=== PATIENT | female | born 1940 | race Caucasian/White ===

== ENCOUNTER 2017-08-03 12:52 | Inpatient (IN) ==
[2017-08-03] MEDS ORDERED: methylPREDNISolone SOD SUC 125 MG/2 ML VIAL IV STA (13:13)
[2017-08-03] MEDS ORDERED: ALBUTEROL NEB SOLN 5 MG/ML 20 ML/BOTTLE CONT NEB STA (13:13)
[2017-08-03] MEDS ORDERED: methylPREDNISolone SOD SUC 125 MG/2 ML VIAL ONE (14:14)
[2017-08-03 14:15] LABS: Basophils % 0.3 % (0.0-0.8); Eosinophils # 0.1 10*3/uL (0.0-0.87); Eosinophils % 0.9 % (0.00-10.9); Hematocrit 34.4 VOL% (35.7-47.0); Hemoglobin 10.4 GM/DL (12.0-16.0); Immature Granulocytes % 0.8 %; Immature Granulocytes Absolute 0.11 #; Lymphocytes # 2.3 10*3/uL (1.4-4.0); Lymphocytes % 17.1 % (21.3-54.2); Mean Corpuscular HGB Conc 30.2 GM/DL (32-36); Mean Corpuscular Hemoglobin 26 PG (27-34); Mean Corpuscular Volume 85.1 FL (87-102); Mean Platelet Volume 10.7 FL (9.6-12.0); Monocytes # 1.8 10*3/uL (0.11-0.8); Monocytes % 13.3 % (1.7-12.7); Neutrophils % 67.6 % (38.7-73.9); Platelet Count 224 T/CUMM (130-400); Red Blood Count 4.04 MC/CUMM (3.8-5.5); Red Cell Distribution Width 15.5 % (9.3-17.3); White Blood Count 13.3 T/CUMM (4-12)
[2017-08-03 14:37] LABS: Alanine Aminotransferase 21 U/L (13-56); Albumin 3.3 G/DL (3.4-5.0); Alkaline Phosphatase 55 U/L (45-117); Aspartate Amino Transferase 16 U/L (0-37); Bilirubin,Total < 0.39 MG/DL (0.2-1.0); Blood Urea Nitrogen 25 MG/DL (7-18); Calcium 8.6 MG/DL (8.5-10.1); Glucose 108 MG/DL (74-106); Osmolality,Calculated 285.3 MOS/KG (273-304); Potassium 3.4 MMOL/L (3.5-5.1); Sodium 141 MMOL/L (136-145); Total Protein 6.9 G/DL (6.4-8.3)
[2017-08-03] MEDS ORDERED: ALBUTEROL/IPRATROPIUM 3 ML NEB RESP TX PRN (17:10)
[2017-08-03] MEDS ORDERED: LEVOFLOXACIN INJ 500 MG in PREMIX 1 EACH IV STA (17:10)
[2017-08-03] MEDS: SODIUM CHLORIDE 0.9% 1,000 ML IV SCH (17:53)
[2017-08-03] MEDS ORDERED: ALBUTEROL 2.5 MG/3 ML NEB RESP TX SCH (18:00)
[2017-08-03] MEDS ORDERED: methylPREDNISolone SOD SUC 125 MG/2 ML VIAL IV SCH (18:00)
[2017-08-03] MEDS: DOCUSATE SODIUM 100 MG CAPSULE PO SCH (20:53)
[2017-08-03] MEDS: methylPREDNISolone SOD SUC 40 MG/1 ML VIAL IV SCH (20:54)
[2017-08-03] MEDS: METOPROLOL TARTRATE 50 MG TABLET PO SCH (20:54)
[2017-08-03] MEDS: ALBUTEROL/IPRATROPIUM 3 ML NEB RESP TX SCH (21:05)
[2017-08-04] MEDS: ALBUTEROL/IPRATROPIUM 3 ML NEB RESP TX SCH ×4 (00:16→20:02)
[2017-08-04] MEDS: methylPREDNISolone SOD SUC 40 MG/1 ML VIAL IV SCH ×3 (02:29→16:52)
[2017-08-04] MEDS: SODIUM CHLORIDE 0.9% 1,000 ML IV SCH ×3 (02:34→18:35)
[2017-08-04] MEDS: LEVOTHYROXINE 50 MCG TABLET PO SCH (07:24)
[2017-08-04] MEDS ORDERED: PANTOPRAZOLE 40 MG TABLET PO SCH (09:00)
[2017-08-04] MEDS: ZINC GLUCONATE 50 MG TABLET PO SCH (09:50)
[2017-08-04] MEDS: ACETAMINOPHEN 325 MG TABLET PO PRN ×2 (09:50→16:02)
[2017-08-04] MEDS: METOPROLOL TARTRATE 50 MG TABLET PO SCH ×2 (09:50→20:38)
[2017-08-04] MEDS: MAGNESIUM OXIDE 400 MG TABLET PO SCH (09:50)
[2017-08-04] MEDS: rOPINIRole 0.25 MG TABLET PO SCH (09:50)
[2017-08-04] MEDS: ASPIRIN EC 81 MG TABLET PO SCH (09:51)
[2017-08-04] MEDS: FUROSEMIDE 40 MG TABLET PO SCH (09:51)
[2017-08-04] MEDS: PANTOPRAZOLE 40 MG TABLET PO SCH (09:51)
[2017-08-04] MEDS: CLOPIDOGREL 75 MG TABLET PO SCH (09:51)
[2017-08-04] MEDS: MONTELUKAST 10 MG TABLET PO SCH (09:51)
[2017-08-04] MEDS: predniSONE 10 MG TABLET PO SCH (09:51)
[2017-08-04] MEDS: hydroCHLOROthiazide 25 MG TABLET PO SCH (09:51)
[2017-08-04] MEDS: RALOXIFENE 60 MG TABLET PO SCH (09:51)
[2017-08-04] MEDS: PRAVASTATIN 20 MG TABLET PO SCH (09:51)
[2017-08-04] MEDS: FOLIC ACID 1 MG TABLET PO SCH (09:52)
[2017-08-04] MEDS: CALCIUM (CARBONATE) 500 MG TABLET PO SCH (09:52)
[2017-08-04] MEDS: DOCUSATE SODIUM 100 MG CAPSULE PO SCH ×2 (09:52→20:38)
[2017-08-04] MEDS: ENOXAPARIN 40 MG/0.4 ML SYRINGE SUBCUT SCH (10:04)
[2017-08-04] MEDS: ONDANSETRON 4 MG/2 ML VIAL IV PRN (19:05)
[2017-08-04] MEDS: LEVOFLOXACIN INJ 500 MG in PREMIX 1 EACH IV SCH (20:41)
[2017-08-05] MEDS: ALBUTEROL/IPRATROPIUM 3 ML NEB RESP TX SCH ×4 (00:45→20:10)
[2017-08-05] MEDS: ACETAMINOPHEN 325 MG TABLET PO PRN (01:12)
[2017-08-05] MEDS: methylPREDNISolone SOD SUC 40 MG/1 ML VIAL IV SCH ×3 (01:13→17:08)
[2017-08-05] MEDS: ONDANSETRON 4 MG/2 ML VIAL IV PRN (01:14)
[2017-08-05] MEDS: SODIUM CHLORIDE 0.9% 1,000 ML IV SCH ×2 (03:20→17:12)
[2017-08-05] MEDS: LEVOTHYROXINE 50 MCG TABLET PO SCH (05:38)
[2017-08-05 06:26] LABS: Basophils % 0.1 % (0.0-0.8); Hematocrit 33.5 VOL% (35.7-47.0); Hemoglobin 9.9 GM/DL (12.0-16.0); Immature Granulocytes % 1.2 %; Immature Granulocytes Absolute 0.27 #; Lymphocytes # 1.4 10*3/uL (1.4-4.0); Lymphocytes % 5.9 % (21.3-54.2); Mean Corpuscular HGB Conc 29.6 GM/DL (32-36); Mean Corpuscular Hemoglobin 26 PG (27-34); Mean Corpuscular Volume 86.6 FL (87-102); Mean Platelet Volume 11.3 FL (9.6-12.0); Monocytes # 1.3 10*3/uL (0.11-0.8); Monocytes % 5.7 % (1.7-12.7); Neutrophils # 20.4 10*3/uL (1.4-7.4); Neutrophils % 87.1 % (38.7-73.9); Platelet Count 228 T/CUMM (130-400); Red Blood Count 3.87 MC/CUMM (3.8-5.5); Red Cell Distribution Width 15.8 % (9.3-17.3); White Blood Count 23.4 T/CUMM (4-12)
[2017-08-05 06:44] LABS: Calcium 8.4 MG/DL (8.5-10.1); Osmolality,Calculated 294.7 MOS/KG (273-304); Potassium 3.8 MMOL/L (3.5-5.1)
[2017-08-05 07:06] LABS: Lymphocytes 5 % (20-55); Platelet Estimate Normal; Segmented Neutrophils 91 % (50-85); Total Cells Counted 100
[2017-08-05] MEDS: ENOXAPARIN 40 MG/0.4 ML SYRINGE SUBCUT SCH (09:51)
[2017-08-05] MEDS: RALOXIFENE 60 MG TABLET PO SCH (09:52)
[2017-08-05] MEDS: MAGNESIUM OXIDE 400 MG TABLET PO SCH (09:53)
[2017-08-05] MEDS: rOPINIRole 0.25 MG TABLET PO SCH ×2 (09:53→21:00)
[2017-08-05] MEDS: ZINC GLUCONATE 50 MG TABLET PO SCH (09:53)
[2017-08-05] MEDS: OSELTAMIVIR 75 MG CAPSULE PO SCH ×2 (09:53→21:00)
[2017-08-05] MEDS: CALCIUM (CARBONATE) 500 MG TABLET PO SCH (09:53)
[2017-08-05] MEDS: CLOPIDOGREL 75 MG TABLET PO SCH (09:53)
[2017-08-05] MEDS: GABAPENTIN 300 MG CAPSULE PO SCH ×3 (09:53→21:00)
[2017-08-05] MEDS: hydroCHLOROthiazide 25 MG TABLET PO SCH (09:53)
[2017-08-05] MEDS: DOCUSATE SODIUM 100 MG CAPSULE PO SCH ×2 (09:54→21:01)
[2017-08-05] MEDS: FUROSEMIDE 40 MG TABLET PO SCH (09:54)
[2017-08-05] MEDS: ASPIRIN EC 81 MG TABLET PO SCH (09:54)
[2017-08-05] MEDS: METOPROLOL TARTRATE 50 MG TABLET PO SCH ×2 (09:54→21:01)
[2017-08-05] MEDS: PANTOPRAZOLE 40 MG TABLET PO SCH (09:54)
[2017-08-05] MEDS: predniSONE 10 MG TABLET PO SCH (09:54)
[2017-08-05] MEDS: PRAVASTATIN 20 MG TABLET PO SCH (09:54)
[2017-08-05] MEDS: FOLIC ACID 1 MG TABLET PO SCH (09:55)
[2017-08-05] MEDS: MONTELUKAST 10 MG TABLET PO SCH (09:55)
[2017-08-05] MEDS: LEVOFLOXACIN INJ 500 MG in PREMIX 1 EACH IV SCH (21:01)
[2017-08-06] MEDS: methylPREDNISolone SOD SUC 40 MG/1 ML VIAL IV SCH ×3 (01:16→22:10)
[2017-08-06] MEDS: ALBUTEROL/IPRATROPIUM 3 ML NEB RESP TX SCH ×4 (01:17→20:51)
[2017-08-06] MEDS: SODIUM CHLORIDE 0.9% 1,000 ML IV SCH ×3 (04:06→20:10)
[2017-08-06] MEDS: LEVOTHYROXINE 50 MCG TABLET PO SCH (05:36)
[2017-08-06] MEDS ORDERED: BENZONATATE 100 MG CAPSULE PO PRN (08:11)
[2017-08-06] MEDS: ASPIRIN EC 81 MG TABLET PO SCH (08:48)
[2017-08-06] MEDS: RALOXIFENE 60 MG TABLET PO SCH (08:49)
[2017-08-06] MEDS: hydroCHLOROthiazide 25 MG TABLET PO SCH (08:49)
[2017-08-06] MEDS: DOCUSATE SODIUM 100 MG CAPSULE PO SCH ×2 (08:49→21:57)
[2017-08-06] MEDS: FOLIC ACID 1 MG TABLET PO SCH (08:49)
[2017-08-06] MEDS: FUROSEMIDE 40 MG TABLET PO SCH (08:50)
[2017-08-06] MEDS: ENOXAPARIN 40 MG/0.4 ML SYRINGE SUBCUT SCH (08:50)
[2017-08-06] MEDS: METOPROLOL TARTRATE 50 MG TABLET PO SCH ×2 (08:50→21:57)
[2017-08-06] MEDS: OSELTAMIVIR 75 MG CAPSULE PO SCH ×2 (08:51→21:57)
[2017-08-06] MEDS: PRAVASTATIN 20 MG TABLET PO SCH (08:52)
[2017-08-06] MEDS: MAGNESIUM OXIDE 400 MG TABLET PO SCH (08:52)
[2017-08-06] MEDS: PANTOPRAZOLE 40 MG TABLET PO SCH (08:52)
[2017-08-06] MEDS: GABAPENTIN 300 MG CAPSULE PO SCH ×3 (08:53→21:56)
[2017-08-06] MEDS: CLOPIDOGREL 75 MG TABLET PO SCH (08:53)
[2017-08-06] MEDS: rOPINIRole 0.25 MG TABLET PO SCH ×2 (08:53→21:57)
[2017-08-06] MEDS: CALCIUM (CARBONATE) 500 MG TABLET PO SCH (08:53)
[2017-08-06] MEDS: MONTELUKAST 10 MG TABLET PO SCH (08:54)
[2017-08-06] MEDS: ZINC GLUCONATE 50 MG TABLET PO SCH (08:55)
[2017-08-06] MEDS: predniSONE 10 MG TABLET PO SCH (08:55)
[2017-08-06] MEDS: LEVOFLOXACIN INJ 500 MG in PREMIX 1 EACH IV SCH (22:11)
[2017-08-07] MEDS: ALBUTEROL/IPRATROPIUM 3 ML NEB RESP TX SCH ×3 (00:23→13:11)
[2017-08-07] MEDS ORDERED: guaiFENesin 200 MG/10 ML UDCUP PO PRN (02:17)
[2017-08-07] MEDS: SODIUM CHLORIDE 0.9% 1,000 ML IV SCH ×2 (06:20→15:40)
[2017-08-07] MEDS: DOCUSATE SODIUM 100 MG CAPSULE PO SCH (09:19)
[2017-08-07] MEDS: hydroCHLOROthiazide 25 MG TABLET PO SCH (09:19)
[2017-08-07] MEDS: OSELTAMIVIR 75 MG CAPSULE PO SCH (09:19)
[2017-08-07] MEDS: FUROSEMIDE 40 MG TABLET PO SCH (09:19)
[2017-08-07] MEDS: ENOXAPARIN 40 MG/0.4 ML SYRINGE SUBCUT SCH (09:19)
[2017-08-07] MEDS: PRAVASTATIN 20 MG TABLET PO SCH (09:20)
[2017-08-07] MEDS: MAGNESIUM OXIDE 400 MG TABLET PO SCH (09:20)
[2017-08-07] MEDS: RALOXIFENE 60 MG TABLET PO SCH (09:20)
[2017-08-07] MEDS: rOPINIRole 0.25 MG TABLET PO SCH (09:20)
[2017-08-07] MEDS: PANTOPRAZOLE 40 MG TABLET PO SCH (09:20)
[2017-08-07] MEDS: ZINC GLUCONATE 50 MG TABLET PO SCH (09:20)
[2017-08-07] MEDS: LEVOTHYROXINE 50 MCG TABLET PO SCH (09:21)
[2017-08-07] MEDS: CLOPIDOGREL 75 MG TABLET PO SCH (09:21)
[2017-08-07] MEDS: GABAPENTIN 300 MG CAPSULE PO SCH (09:21)
[2017-08-07] MEDS: ASPIRIN EC 81 MG TABLET PO SCH (09:21)
[2017-08-07] MEDS: FOLIC ACID 1 MG TABLET PO SCH (09:22)
[2017-08-07] MEDS: MONTELUKAST 10 MG TABLET PO SCH (09:23)
[2017-08-07] MEDS: predniSONE 10 MG TABLET PO SCH (09:24)
[2017-08-07] MEDS: CALCIUM (CARBONATE) 500 MG TABLET PO SCH (09:24)
[2017-08-07] MEDS: METOPROLOL TARTRATE 50 MG TABLET PO SCH (09:25)
[2017-08-07] MEDS: methylPREDNISolone SOD SUC 40 MG/1 ML VIAL IV SCH (09:25)
[2017-08-07 12:03] VITALS: BP 134/61
== END 2017-08-07 14:30 | disposition home or self-care (01) | DRG 194 ==
LOC: EDBD → EDUNIT# → N.ED 12:52 → N.EDINP 15:54 → N.2E 17:00
PROVIDERS: ADMIT Internal Medicine; ATTEND Internal Medicine

== ENCOUNTER 2018-01-26 04:35 | Inpatient (IN) ==
[2018-01-26 06:19] LABS: Basophils % 0.2 % (0.0-0.8); Eosinophils % 0.2 % (0.00-10.9); Hematocrit 34.3 VOL% (35.7-47.0); Hemoglobin 10.3 GM/DL (12.0-16.0); Immature Granulocytes % 0.5 %; Immature Granulocytes Absolute 0.11 #; Lymphocytes # 2.2 10*3/uL (1.4-4.0); Lymphocytes % 10.9 % (21.3-54.2); Mean Corpuscular Hemoglobin 24 PG (27-34); Mean Corpuscular Volume 80.5 FL (87-102); Mean Platelet Volume 10.3 FL (9.6-12.0); Monocytes # 2.2 10*3/uL (0.11-0.8); Monocytes % 11.1 % (1.7-12.7); Neutrophils # 15.6 10*3/uL (1.4-7.4); Neutrophils % 77.1 % (38.7-73.9); Platelet Count 244 T/CUMM (130-400); Red Blood Count 4.26 MC/CUMM (3.8-5.5); Red Cell Distribution Width 16.2 % (9.3-17.3); White Blood Count 20.2 T/CUMM (4-12)
[2018-01-26 06:32] LABS: Calcium 8.6 MG/DL (8.5-10.1); Osmolality,Calculated 276.8 MOS/KG (273-304); Potassium 3.6 MMOL/L (3.5-5.1)
[2018-01-26 07:01] LABS: Apearance,Urine CLEAR (Clear); Bilirubin,Urine Negative (Negative); Blood, Urine Small mg/dL (Negative); Glucose,Urine (UA) Negative (Negative); Ketones,Urine 5 mg/dL (Negative); Nitrite,Urine Negative (Negative); Protein,Urine Negative; RBC,Urine 3 /HPF (0-4); Squamous Epithelial Cell,Urine Occasional /HPF (0-10); Urine Color Yellow (Yellow); Urine Specific Gravity 1.014 (1.001-1.035); Urine Urobilinogen < 2.0 EU/DL (0.2-1.0); WBC,Urine 1 /HPF (0-6)
[2018-01-26] MEDS ORDERED: ONDANSETRON 4 MG/2 ML VIAL IV STA (07:18)
[2018-01-26] MEDS ORDERED: SODIUM CHLORIDE 0.9% 1,000 ML IV STA (07:18)
[2018-01-26] MEDS ORDERED: fentaNYL 100 MCG/2 ML VIAL IV STA (07:18)
[2018-01-26 08:02] LABS: Hypochromasia 2+; Macrocytosis 1+
[2018-01-26] MEDS ORDERED: AMPICILLIN/SULBACTAM 3,000 MG in SODIUM CHLORIDE 0.9% 100 ML IV STA (08:04)
[2018-01-26] MEDS ORDERED: fentaNYL 100 MCG/2 ML VIAL IV PRN (10:58)
[2018-01-26] MEDS ORDERED: ACETAMINOPHEN 325 MG TABLET PO PRN (10:58)
[2018-01-26] MEDS: PANTOPRAZOLE 40 MG TABLET PO SCH (12:32)
[2018-01-26] MEDS: DOCUSATE SODIUM 100 MG CAPSULE PO SCH ×2 (12:32→22:09)
[2018-01-26] MEDS: SODIUM CHLORIDE 0.9% 1,000 ML IV SCH (12:32)
[2018-01-26] MEDS: metroNIDAZOLE INJ 500 MG in PREMIX 1 EACH IV SCH ×2 (12:32→19:07)
[2018-01-26] MEDS: AMPICILLIN/SULBACTAM 3,000 MG in SODIUM CHLORIDE 0.9% 100 ML IV SCH ×2 (14:25→22:08)
[2018-01-26] MEDS: ONDANSETRON 4 MG/2 ML VIAL IV PRN (19:07)
[2018-01-26] MEDS: MORPHINE 4 MG/1 ML VIAL IV PRN (22:09)
[2018-01-27] MEDS: SODIUM CHLORIDE 0.9% 1,000 ML IV SCH ×4 (01:09→22:36)
[2018-01-27] MEDS: metroNIDAZOLE INJ 500 MG in PREMIX 1 EACH IV SCH ×3 (02:52→18:47)
[2018-01-27] MEDS: MORPHINE 4 MG/1 ML VIAL IV PRN (04:24)
[2018-01-27] MEDS: AMPICILLIN/SULBACTAM 3,000 MG in SODIUM CHLORIDE 0.9% 100 ML IV SCH ×3 (05:58→22:10)
[2018-01-27 06:41] LABS: Basophils % 0.2 % (0.0-0.8); Eosinophils # 0.1 10*3/uL (0.0-0.87); Eosinophils % 0.9 % (0.00-10.9); Hematocrit 29.9 VOL% (35.7-47.0); Immature Granulocytes % 0.9 %; Immature Granulocytes Absolute 0.14 #; Lymphocytes # 1.5 10*3/uL (1.4-4.0); Lymphocytes % 9.1 % (21.3-54.2); Mean Corpuscular HGB Conc 30.1 GM/DL (32-36); Mean Corpuscular Hemoglobin 24 PG (27-34); Mean Corpuscular Volume 80.2 FL (87-102); Monocytes # 1.7 10*3/uL (0.11-0.8); Monocytes % 10.6 % (1.7-12.7); Neutrophils # 12.8 10*3/uL (1.4-7.4); Neutrophils % 78.3 % (38.7-73.9); Platelet Count 215 T/CUMM (130-400); Red Blood Count 3.73 MC/CUMM (3.8-5.5); Red Cell Distribution Width 16.4 % (9.3-17.3); White Blood Count 16.3 T/CUMM (4-12)
[2018-01-27 07:21] LABS: Albumin 2.3 G/DL (3.4-5.0); Bilirubin,Total 0.6 MG/DL (0.2-1.0); Calcium 7.7 MG/DL (8.5-10.1); Osmolality,Calculated 280.3 MOS/KG (273-304); Potassium 3.5 MMOL/L (3.5-5.1); Total Protein 5.3 G/DL (6.4-8.3)
[2018-01-27] MEDS: PANTOPRAZOLE 40 MG TABLET PO SCH (09:30)
[2018-01-27] MEDS: DOCUSATE SODIUM 100 MG CAPSULE PO SCH ×2 (09:30→20:59)
[2018-01-27] MEDS: ONDANSETRON 4 MG/2 ML VIAL IV PRN (17:18)
[2018-01-27] MEDS: rOPINIRole 0.25 MG TABLET PO SCH (19:44)
[2018-01-27] MEDS ORDERED: PROMETHAZINE 25 MG/1 ML VIAL IM PRN (22:08)
[2018-01-28] MEDS: metroNIDAZOLE INJ 500 MG in PREMIX 1 EACH IV SCH ×3 (02:40→18:28)
[2018-01-28] MEDS: MORPHINE 4 MG/1 ML VIAL IV PRN (03:43)
[2018-01-28] MEDS: AMPICILLIN/SULBACTAM 3,000 MG in SODIUM CHLORIDE 0.9% 100 ML IV SCH ×3 (05:40→21:43)
[2018-01-28 06:18] LABS: Basophils % 0.1 % (0.0-0.8); Eosinophils # 0.2 10*3/uL (0.0-0.87); Eosinophils % 1.7 % (0.00-10.9); Hemoglobin 8.3 GM/DL (12.0-16.0); Immature Granulocytes % 0.5 %; Immature Granulocytes Absolute 0.06 #; Lymphocytes # 1.2 10*3/uL (1.4-4.0); Lymphocytes % 9.7 % (21.3-54.2); Mean Corpuscular HGB Conc 29.6 GM/DL (32-36); Mean Corpuscular Hemoglobin 24 PG (27-34); Mean Corpuscular Volume 80.9 FL (87-102); Mean Platelet Volume 10.6 FL (9.6-12.0); Monocytes # 1.3 10*3/uL (0.11-0.8); Monocytes % 10.9 % (1.7-12.7); Neutrophils # 9.5 10*3/uL (1.4-7.4); Neutrophils % 77.1 % (38.7-73.9); Platelet Count 233 T/CUMM (130-400); Red Blood Count 3.46 MC/CUMM (3.8-5.5); Red Cell Distribution Width 16.4 % (9.3-17.3); White Blood Count 12.3 T/CUMM (4-12)
[2018-01-28] MEDS: SODIUM CHLORIDE 0.9% 1,000 ML IV SCH ×2 (08:53→08:56)
[2018-01-28] MEDS: ENOXAPARIN 40 MG/0.4 ML SYRINGE SUBCUT SCH (09:17)
[2018-01-28] MEDS: metOLazone 2.5 MG TABLET PO SCH (09:18)
[2018-01-28] MEDS: METOPROLOL TARTRATE 50 MG TABLET PO SCH ×2 (09:20→21:29)
[2018-01-28] MEDS: FOLIC ACID 1 MG TABLET PO SCH (09:21)
[2018-01-28] MEDS: DOCUSATE SODIUM 100 MG CAPSULE PO SCH ×2 (09:21→21:29)
[2018-01-28] MEDS: FUROSEMIDE 40 MG TABLET PO SCH (09:22)
[2018-01-28] MEDS: PANTOPRAZOLE 40 MG TABLET PO SCH (09:22)
[2018-01-28] MEDS: predniSONE 5 MG TABLET PO SCH (09:23)
[2018-01-28] MEDS: rOPINIRole 0.25 MG TABLET PO SCH (18:27)
[2018-01-29] MEDS: SODIUM CHLORIDE 0.9% 1,000 ML IV SCH ×2 (01:11→18:55)
[2018-01-29] MEDS: metroNIDAZOLE INJ 500 MG in PREMIX 1 EACH IV SCH ×3 (02:30→18:55)
[2018-01-29 03:38] LABS: Basophils % 0.1 % (0.0-0.8); Eosinophils # 0.1 10*3/uL (0.0-0.87); Eosinophils % 1.1 % (0.00-10.9); Hematocrit 27.4 VOL% (35.7-47.0); Hemoglobin 8.2 GM/DL (12.0-16.0); Immature Granulocytes % 0.5 %; Immature Granulocytes Absolute 0.05 #; Lymphocytes # 1.5 10*3/uL (1.4-4.0); Lymphocytes % 14.9 % (21.3-54.2); Mean Corpuscular HGB Conc 29.9 GM/DL (32-36); Mean Corpuscular Hemoglobin 25 PG (27-34); Mean Corpuscular Volume 82.3 FL (87-102); Mean Platelet Volume 10.8 FL (9.6-12.0); Monocytes # 1.2 10*3/uL (0.11-0.8); Monocytes % 11.9 % (1.7-12.7); Neutrophils # 7.2 10*3/uL (1.4-7.4); Neutrophils % 71.5 % (38.7-73.9); Platelet Count 240 T/CUMM (130-400); Red Blood Count 3.33 MC/CUMM (3.8-5.5); Red Cell Distribution Width 16.2 % (9.3-17.3)
[2018-01-29 03:54] LABS: Calcium 7.9 MG/DL (8.5-10.1); Potassium 3.2 MMOL/L (3.5-5.1)
[2018-01-29] MEDS: AMPICILLIN/SULBACTAM 3,000 MG in SODIUM CHLORIDE 0.9% 100 ML IV SCH ×3 (05:18→21:11)
[2018-01-29] MEDS: LEVOTHYROXINE 50 MCG TABLET PO SCH (06:10)
[2018-01-29] MEDS: DOCUSATE SODIUM 100 MG CAPSULE PO SCH ×2 (09:19→21:11)
[2018-01-29] MEDS: METOPROLOL TARTRATE 50 MG TABLET PO SCH ×2 (09:19→21:11)
[2018-01-29] MEDS: FUROSEMIDE 40 MG TABLET PO SCH (09:19)
[2018-01-29] MEDS: metOLazone 2.5 MG TABLET PO SCH (09:19)
[2018-01-29] MEDS: predniSONE 5 MG TABLET PO SCH (09:20)
[2018-01-29] MEDS: FOLIC ACID 1 MG TABLET PO SCH (09:20)
[2018-01-29] MEDS: ENOXAPARIN 40 MG/0.4 ML SYRINGE SUBCUT SCH (09:20)
[2018-01-29] MEDS: PANTOPRAZOLE 40 MG TABLET PO SCH (09:20)
[2018-01-29] MEDS: rOPINIRole 0.25 MG TABLET PO SCH (18:55)
[2018-01-30] MEDS: metroNIDAZOLE INJ 500 MG in PREMIX 1 EACH IV SCH ×3 (02:39→18:52)
[2018-01-30] MEDS: AMPICILLIN/SULBACTAM 3,000 MG in SODIUM CHLORIDE 0.9% 100 ML IV SCH ×3 (06:19→21:08)
[2018-01-30] MEDS: LEVOTHYROXINE 50 MCG TABLET PO SCH (06:20)
[2018-01-30] MEDS: DOCUSATE SODIUM 100 MG CAPSULE PO SCH (08:42)
[2018-01-30] MEDS: PANTOPRAZOLE 40 MG TABLET PO SCH (08:42)
[2018-01-30] MEDS: predniSONE 5 MG TABLET PO SCH (08:42)
[2018-01-30] MEDS: METOPROLOL TARTRATE 50 MG TABLET PO SCH ×2 (08:42→21:08)
[2018-01-30] MEDS: FUROSEMIDE 40 MG TABLET PO SCH (08:42)
[2018-01-30] MEDS: ENOXAPARIN 40 MG/0.4 ML SYRINGE SUBCUT SCH (08:42)
[2018-01-30] MEDS: FOLIC ACID 1 MG TABLET PO SCH (08:42)
[2018-01-30] MEDS: metOLazone 2.5 MG TABLET PO SCH (08:42)
[2018-01-30] MEDS: SODIUM CHLORIDE 0.9% 1,000 ML IV SCH (12:57)
[2018-01-30 13:01] LABS: Basophils % 0.2 % (0.0-0.8); Eosinophils # 0.2 10*3/uL (0.0-0.87); Eosinophils % 1.6 % (0.00-10.9); Hematocrit 29.9 VOL% (35.7-47.0); Hemoglobin 8.9 GM/DL (12.0-16.0); Immature Granulocytes % 0.7 %; Immature Granulocytes Absolute 0.07 #; Lymphocytes # 0.9 10*3/uL (1.4-4.0); Mean Corpuscular HGB Conc 29.8 GM/DL (32-36); Mean Corpuscular Hemoglobin 24 PG (27-34); Mean Corpuscular Volume 81.7 FL (87-102); Mean Platelet Volume 10.1 FL (9.6-12.0); Monocytes # 0.5 10*3/uL (0.11-0.8); Monocytes % 5.2 % (1.7-12.7); Neutrophils # 8.6 10*3/uL (1.4-7.4); Neutrophils % 83.3 % (38.7-73.9); Platelet Count 276 T/CUMM (130-400); Red Blood Count 3.66 MC/CUMM (3.8-5.5); Red Cell Distribution Width 15.8 % (9.3-17.3); White Blood Count 10.3 T/CUMM (4-12)
[2018-01-30 13:28] LABS: Calcium 8.2 MG/DL (8.5-10.1); Osmolality,Calculated 283.1 MOS/KG (273-304); Potassium 3.1 MMOL/L (3.5-5.1)
[2018-01-30] MEDS: rOPINIRole 0.25 MG TABLET PO SCH (18:52)
[2018-01-31] MEDS: metroNIDAZOLE INJ 500 MG in PREMIX 1 EACH IV SCH ×3 (03:18→18:52)
[2018-01-31] MEDS: SODIUM CHLORIDE 0.9% 1,000 ML IV SCH ×2 (05:29→19:16)
[2018-01-31] MEDS: AMPICILLIN/SULBACTAM 3,000 MG in SODIUM CHLORIDE 0.9% 100 ML IV SCH ×3 (05:57→22:21)
[2018-01-31 05:59] LABS: Basophils % 0.3 % (0.0-0.8); Eosinophils # 0.2 10*3/uL (0.0-0.87); Hematocrit 28.8 VOL% (35.7-47.0); Hemoglobin 8.8 GM/DL (12.0-16.0); Immature Granulocytes % 0.4 %; Immature Granulocytes Absolute 0.03 #; Lymphocytes # 2.3 10*3/uL (1.4-4.0); Lymphocytes % 30.6 % (21.3-54.2); Mean Corpuscular HGB Conc 30.6 GM/DL (32-36); Mean Corpuscular Hemoglobin 24 PG (27-34); Mean Corpuscular Volume 79.8 FL (87-102); Mean Platelet Volume 10.8 FL (9.6-12.0); Monocytes # 0.9 10*3/uL (0.11-0.8); Monocytes % 12.2 % (1.7-12.7); Neutrophils # 4.2 10*3/uL (1.4-7.4); Neutrophils % 54.5 % (38.7-73.9); Platelet Count 281 T/CUMM (130-400); Red Blood Count 3.61 MC/CUMM (3.8-5.5); Red Cell Distribution Width 15.8 % (9.3-17.3); White Blood Count 7.6 T/CUMM (4-12)
[2018-01-31] MEDS: LEVOTHYROXINE 50 MCG TABLET PO SCH (06:00)
[2018-01-31 06:18] LABS: Osmolality,Calculated 283.8 MOS/KG (273-304); Potassium 3.4 MMOL/L (3.5-5.1)
[2018-01-31 06:22] LABS: Eosinophils 1 % (0-10); Hypochromasia 1+; Lymphocytes 34 % (20-55); Platelet Estimate Adequate; Segmented Neutrophils 56 % (50-85); Total Cells Counted 100
[2018-01-31] MEDS: ENOXAPARIN 40 MG/0.4 ML SYRINGE SUBCUT SCH (08:35)
[2018-01-31] MEDS: METOPROLOL TARTRATE 50 MG TABLET PO SCH ×2 (08:35→20:41)
[2018-01-31] MEDS: metOLazone 2.5 MG TABLET PO SCH (08:35)
[2018-01-31] MEDS: PANTOPRAZOLE 40 MG TABLET PO SCH (08:35)
[2018-01-31] MEDS: POTASSIUM CHLORIDE 8 MEQ CAPSULE PO SCH (08:35)
[2018-01-31] MEDS: predniSONE 5 MG TABLET PO SCH (08:35)
[2018-01-31] MEDS: FOLIC ACID 1 MG TABLET PO SCH (08:35)
[2018-01-31] MEDS: FUROSEMIDE 40 MG TABLET PO SCH (08:35)
[2018-01-31] MEDS: rOPINIRole 0.25 MG TABLET PO SCH (18:52)
[2018-02-01] MEDS: metroNIDAZOLE INJ 500 MG in PREMIX 1 EACH IV SCH ×2 (03:40→10:33)
[2018-02-01 05:30] LABS: Basophils % 0.3 % (0.0-0.8); Eosinophils # 0.1 10*3/uL (0.0-0.87); Eosinophils % 0.8 % (0.00-10.9); Hematocrit 28.9 VOL% (35.7-47.0); Hemoglobin 8.6 GM/DL (12.0-16.0); Lymphocytes % 28.8 % (21.3-54.2); Mean Corpuscular HGB Conc 29.8 GM/DL (32-36); Mean Corpuscular Hemoglobin 24 PG (27-34); Mean Corpuscular Volume 80.7 FL (87-102); Mean Platelet Volume 10.8 FL (9.6-12.0); Monocytes # 1.2 10*3/uL (0.11-0.8); Monocytes % 11.2 % (1.7-12.7); Neutrophils # 5.9 10*3/uL (1.4-7.4); Neutrophils % 57.9 % (38.7-73.9); Platelet Count 312 T/CUMM (130-400); Red Blood Count 3.58 MC/CUMM (3.8-5.5); Red Cell Distribution Width 15.7 % (9.3-17.3); White Blood Count 10.3 T/CUMM (4-12)
[2018-02-01] MEDS: AMPICILLIN/SULBACTAM 3,000 MG in SODIUM CHLORIDE 0.9% 100 ML IV SCH (05:46)
[2018-02-01 05:57] LABS: Osmolality,Calculated 283.1 MOS/KG (273-304); Potassium 3.2 MMOL/L (3.5-5.1)
[2018-02-01 05:58] LABS: Hypochromasia 1+; Ovalocytes Slight; Platelet Estimate Adequate
[2018-02-01] MEDS: LEVOTHYROXINE 50 MCG TABLET PO SCH (07:20)
[2018-02-01 07:44] VITALS: BP 150/67
[2018-02-01] MEDS: FOLIC ACID 1 MG TABLET PO SCH (09:51)
[2018-02-01] MEDS: PANTOPRAZOLE 40 MG TABLET PO SCH (09:51)
[2018-02-01] MEDS: metOLazone 2.5 MG TABLET PO SCH (09:51)
[2018-02-01] MEDS: predniSONE 5 MG TABLET PO SCH (09:51)
[2018-02-01] MEDS: METOPROLOL TARTRATE 50 MG TABLET PO SCH (09:51)
[2018-02-01] MEDS: FUROSEMIDE 40 MG TABLET PO SCH (09:51)
[2018-02-01] MEDS: POTASSIUM CHLORIDE 8 MEQ CAPSULE PO SCH (09:51)
[2018-02-01] MEDS: ENOXAPARIN 40 MG/0.4 ML SYRINGE SUBCUT SCH (09:52)
== END 2018-02-01 10:53 | disposition home health service (06) | DRG 392 ==
LOC: EDUNIT# → EDBD → N.ED 04:35 → N.EDINP 08:07 → N.3E 08:42
PROVIDERS: ADMIT Internal Medicine; ATTEND Internal Medicine

== ENCOUNTER 2019-06-15 12:42 | Inpatient (IN) ==
[2019-06-15] MEDS ORDERED: SODIUM CHLORIDE 0.9% 500 ML IV STA (14:09)
[2019-06-15] MEDS ORDERED: AMPICILLIN/SULBACTAM 3,000 MG in SODIUM CHLORIDE 0.9% 100 ML IV STA (14:09)
[2019-06-15] MEDS ORDERED: metroNIDAZOLE INJ 500 MG in PREMIX 1 EACH IV STA (14:09)
[2019-06-15] MEDS ORDERED: ACETAMINOPHEN 325 MG TABLET PO PRN (14:19)
[2019-06-15] MEDS ORDERED: ONDANSETRON 4 MG/2 ML VIAL IV PRN (14:19)
[2019-06-15 14:31] LABS: Basophils % 0.1 % (0.0-0.8); Eosinophils % 0.1 % (0.00-10.9); Hematocrit 37.6 VOL% (35.7-47.0); Hemoglobin 11.6 GM/DL (12.0-16.0); Immature Granulocytes % 0.8 %; Immature Granulocytes Absolute 0.16 #; Lymphocytes # 1.2 10*3/uL (1.4-4.0); Lymphocytes % 6.1 % (21.3-54.2); Mean Corpuscular HGB Conc 30.9 GM/DL (32-36); Mean Corpuscular Volume 87.2 FL (87-102); Monocytes % 7.9 % (1.7-12.7); Platelet Count 214 T/CUMM (130-400); Red Blood Count 4.31 MC/CUMM (3.8-5.5); Red Cell Distribution Width 14.8 % (9.3-17.3)
[2019-06-15 14:59] LABS: Albumin 3.3 G/DL (3.4-5.0); Bilirubin,Total 0.5 MG/DL (0.2-1.0); Calcium 8.9 MG/DL (8.5-10.1); Osmolality,Calculated 286.1 MOS/KG (273-304); Total Protein 6.4 G/DL (6.4-8.3)
[2019-06-15] MEDS: PIPERACILLIN/TAZOBACTAM 3,375 MG in SODIUM CHLORIDE 0.9% 100 ML IV SCH (18:52)
[2019-06-15 20:49] LABS: Apearance,Urine CLEAR (Clear); Bilirubin,Urine Negative (Negative); Blood, Urine Negative (Negative); Glucose,Urine (UA) Negative (Negative); Hyaline Casts,Urine 1 /LPF (0-3); Ketones,Urine Negative (Negative); Mucus,Urine Occasional /LPF (Occasional); Nitrite,Urine Negative (Negative); Protein,Urine Negative; RBC,Urine 3 /HPF (0-4); Squamous Epithelial Cell,Urine Occasional /HPF (0-10); Urine Color Yellow (Yellow); Urine Specific Gravity 1.023 (1.001-1.035); Urine Urobilinogen < 2.0 EU/DL (0.2-1.0); WBC,Urine 1 /HPF (0-6)
[2019-06-15] MEDS: metroNIDAZOLE INJ 500 MG in PREMIX 1 EACH IV SCH (22:09)
[2019-06-15] MEDS: POTASSIUM CHLORIDE 8 MEQ CAPSULE PO SCH (22:09)
[2019-06-15] MEDS: MONTELUKAST 10 MG TABLET PO SCH (22:09)
[2019-06-15] MEDS: FUROSEMIDE 40 MG TABLET PO SCH (22:10)
[2019-06-15] MEDS: metOLazone 5 MG TABLET PO SCH (22:10)
[2019-06-15] MEDS: rOPINIRole 1 MG TABLET PO SCH (22:10)
[2019-06-15] MEDS: PREGABALIN 75 MG CAPSULE PO SCH (22:10)
[2019-06-15] MEDS: METOPROLOL TARTRATE 25 MG TABLET PO SCH (22:11)
[2019-06-16] MEDS: PIPERACILLIN/TAZOBACTAM 3,375 MG in SODIUM CHLORIDE 0.9% 100 ML IV SCH ×3 (04:15→18:19)
[2019-06-16] MEDS: MORPHINE 4 MG/1 ML VIAL IV PRN (04:20)
[2019-06-16] MEDS ORDERED: LEVOTHYROXINE 75 MCG TABLET PO SCH (07:00)
[2019-06-16] MEDS ORDERED: ENOXAPARIN 30 MG/0.3 ML SYRINGE SUBCUT SCH (09:00)
[2019-06-16] MEDS ORDERED: Fluticasone Furoate-Vilanterol [Breo Ellipta] 1 inh INH SCH (09:00)
[2019-06-16 09:34] LABS: Calcium 8.5 MG/DL (8.5-10.1); Osmolality,Calculated 284.1 MOS/KG (273-304)
[2019-06-16] MEDS: POTASSIUM CHLORIDE 8 MEQ CAPSULE PO SCH ×2 (09:49→20:45)
[2019-06-16] MEDS: CLOPIDOGREL 75 MG TABLET PO SCH (09:50)
[2019-06-16] MEDS: PREGABALIN 75 MG CAPSULE PO SCH ×3 (09:50→20:45)
[2019-06-16] MEDS: predniSONE 10 MG TABLET PO SCH (09:51)
[2019-06-16] MEDS: METOPROLOL TARTRATE 25 MG TABLET PO SCH ×3 (09:51→20:52)
[2019-06-16] MEDS: FOLIC ACID 1 MG TABLET PO SCH (09:51)
[2019-06-16] MEDS: PANTOPRAZOLE 40 MG TABLET PO SCH (09:51)
[2019-06-16] MEDS: metOLazone 5 MG TABLET PO SCH ×3 (09:51→20:49)
[2019-06-16] MEDS: rOPINIRole 1 MG TABLET PO SCH ×2 (09:51→20:46)
[2019-06-16 10:05] LABS: Basophils % 0.2 % (0.0-0.8); Eosinophils % 0.2 % (0.00-10.9); Hematocrit 35.7 VOL% (35.7-47.0); Hemoglobin 11.1 GM/DL (12.0-16.0); Immature Granulocytes % 0.7 %; Immature Granulocytes Absolute 0.13 #; Lymphocytes # 2.2 10*3/uL (1.4-4.0); Lymphocytes % 11.1 % (21.3-54.2); Mean Corpuscular HGB Conc 31.1 GM/DL (32-36); Mean Corpuscular Volume 87.3 FL (87-102); Mean Platelet Volume 11.4 FL (9.6-12.0); Monocytes % 7.5 % (1.7-12.7); Neutrophils % 80.3 % (38.7-73.9); Platelet Count 198 T/CUMM (130-400); Red Blood Count 4.09 MC/CUMM (3.8-5.5); Red Cell Distribution Width 15.1 % (9.3-17.3); White Blood Count 19.3 T/CUMM (4-12)
[2019-06-16] MEDS: predniSONE 1 MG TABLET PO SCH (10:08)
[2019-06-16] MEDS: FUROSEMIDE 40 MG TABLET PO SCH ×2 (10:11→20:53)
[2019-06-16] MEDS: metroNIDAZOLE INJ 500 MG in PREMIX 1 EACH IV SCH ×3 (10:28→22:07)
[2019-06-16] MEDS: MONTELUKAST 10 MG TABLET PO SCH (20:45)
[2019-06-17] MEDS: MORPHINE 4 MG/1 ML VIAL IV PRN (00:21)
[2019-06-17] MEDS: PIPERACILLIN/TAZOBACTAM 3,375 MG in SODIUM CHLORIDE 0.9% 100 ML IV SCH ×3 (03:26→18:08)
[2019-06-17] MEDS: LEVOTHYROXINE 75 MCG TABLET PO SCH (06:17)
[2019-06-17 06:35] LABS: Basophils % 0.2 % (0.0-0.8); Eosinophils # 0.1 10*3/uL (0.0-0.87); Eosinophils % 0.4 % (0.00-10.9); Hematocrit 32.9 VOL% (35.7-47.0); Immature Granulocytes % 0.6 %; Lymphocytes # 2.3 10*3/uL (1.4-4.0); Lymphocytes % 13.5 % (21.3-54.2); Mean Corpuscular HGB Conc 30.4 GM/DL (32-36); Mean Corpuscular Volume 88.2 FL (87-102); Mean Platelet Volume 11.4 FL (9.6-12.0); Monocytes % 8.5 % (1.7-12.7); Neutrophils % 76.8 % (38.7-73.9); Platelet Count 185 T/CUMM (130-400); Red Blood Count 3.73 MC/CUMM (3.8-5.5); Red Cell Distribution Width 15.1 % (9.3-17.3)
[2019-06-17 06:59] LABS: Calcium 8.5 MG/DL (8.5-10.1); Osmolality,Calculated 288.8 MOS/KG (273-304)
[2019-06-17] MEDS: metroNIDAZOLE INJ 500 MG in PREMIX 1 EACH IV SCH ×4 (07:16→22:05)
[2019-06-17] MEDS: metOLazone 5 MG TABLET PO SCH ×2 (10:09→21:52)
[2019-06-17] MEDS: PANTOPRAZOLE 40 MG TABLET PO SCH (10:09)
[2019-06-17] MEDS: predniSONE 10 MG TABLET PO SCH (10:09)
[2019-06-17] MEDS: predniSONE 1 MG TABLET PO SCH (10:09)
[2019-06-17] MEDS: PREGABALIN 75 MG CAPSULE PO SCH ×3 (10:10→21:51)
[2019-06-17] MEDS: rOPINIRole 1 MG TABLET PO SCH ×2 (10:10→21:51)
[2019-06-17] MEDS: FOLIC ACID 1 MG TABLET PO SCH (10:10)
[2019-06-17] MEDS: CLOPIDOGREL 75 MG TABLET PO SCH (10:11)
[2019-06-17] MEDS: METOPROLOL TARTRATE 25 MG TABLET PO SCH ×2 (10:12→21:52)
[2019-06-17] MEDS: FUROSEMIDE 40 MG TABLET PO SCH ×2 (10:12→21:52)
[2019-06-17] MEDS: ENOXAPARIN 40 MG/0.4 ML SYRINGE SUBCUT SCH (10:12)
[2019-06-17] MEDS: POTASSIUM CHLORIDE 8 MEQ CAPSULE PO SCH ×2 (10:12→21:51)
[2019-06-17] MEDS ORDERED: traMADol 50 MG TABLET PO PRN (14:23)
[2019-06-17] MEDS: MONTELUKAST 10 MG TABLET PO SCH (21:51)
[2019-06-18] MEDS: PIPERACILLIN/TAZOBACTAM 3,375 MG in SODIUM CHLORIDE 0.9% 100 ML IV SCH ×3 (03:04→18:02)
[2019-06-18 05:13] LABS: Basophils % 0.1 % (0.0-0.8); Eosinophils % 0.2 % (0.00-10.9); Hematocrit 32.7 VOL% (35.7-47.0); Immature Granulocytes % 0.8 %; Immature Granulocytes Absolute 0.14 #; Lymphocytes # 1.7 10*3/uL (1.4-4.0); Mean Corpuscular HGB Conc 30.6 GM/DL (32-36); Mean Corpuscular Volume 88.1 FL (87-102); Mean Platelet Volume 11.6 FL (9.6-12.0); Monocytes % 7.9 % (1.7-12.7); Platelet Count 193 T/CUMM (130-400); Red Blood Count 3.71 MC/CUMM (3.8-5.5); Red Cell Distribution Width 15.1 % (9.3-17.3); White Blood Count 16.7 T/CUMM (4-12)
[2019-06-18 05:33] LABS: Calcium 8.3 MG/DL (8.5-10.1); Osmolality,Calculated 287.8 MOS/KG (273-304)
[2019-06-18] MEDS: metroNIDAZOLE INJ 500 MG in PREMIX 1 EACH IV SCH ×3 (06:58→22:29)
[2019-06-18] MEDS: LEVOTHYROXINE 75 MCG TABLET PO SCH (06:59)
[2019-06-18] MEDS: metOLazone 5 MG TABLET PO SCH ×2 (08:07→21:14)
[2019-06-18] MEDS: CLOPIDOGREL 75 MG TABLET PO SCH (09:05)
[2019-06-18] MEDS: predniSONE 1 MG TABLET PO SCH (09:05)
[2019-06-18] MEDS: POTASSIUM CHLORIDE 8 MEQ CAPSULE PO SCH ×2 (09:05→21:15)
[2019-06-18] MEDS: rOPINIRole 1 MG TABLET PO SCH ×2 (09:05→21:15)
[2019-06-18] MEDS: METOPROLOL TARTRATE 25 MG TABLET PO SCH ×2 (09:05→21:15)
[2019-06-18] MEDS: PREGABALIN 75 MG CAPSULE PO SCH ×3 (09:05→21:15)
[2019-06-18] MEDS: FOLIC ACID 1 MG TABLET PO SCH (09:05)
[2019-06-18] MEDS: predniSONE 10 MG TABLET PO SCH (09:06)
[2019-06-18] MEDS: PANTOPRAZOLE 40 MG TABLET PO SCH (09:06)
[2019-06-18] MEDS: ENOXAPARIN 40 MG/0.4 ML SYRINGE SUBCUT SCH (09:06)
[2019-06-18] MEDS: FUROSEMIDE 40 MG TABLET PO SCH ×2 (09:06→21:15)
[2019-06-18] MEDS ORDERED: HYDROmorphone 2 MG/1 ML VIAL IV ONE (11:32)
[2019-06-18] MEDS ORDERED: HYDROmorphone 2 MG/1 ML VIAL IV PRN ×2 (17:49→17:53)
[2019-06-18] MEDS: MONTELUKAST 10 MG TABLET PO SCH (21:18)
[2019-06-19] MEDS: PIPERACILLIN/TAZOBACTAM 3,375 MG in SODIUM CHLORIDE 0.9% 100 ML IV SCH ×3 (01:47→18:48)
[2019-06-19] MEDS: metroNIDAZOLE INJ 500 MG in PREMIX 1 EACH IV SCH ×3 (05:38→21:15)
[2019-06-19] MEDS: LEVOTHYROXINE 75 MCG TABLET PO SCH (05:43)
[2019-06-19 06:18] LABS: Basophils % 0.2 % (0.0-0.8); Eosinophils # 0.1 10*3/uL (0.0-0.87); Eosinophils % 0.5 % (0.00-10.9); Hematocrit 36.6 VOL% (35.7-47.0); Hemoglobin 11.2 GM/DL (12.0-16.0); Immature Granulocytes % 0.7 %; Immature Granulocytes Absolute 0.12 #; Lymphocytes # 2.1 10*3/uL (1.4-4.0); Lymphocytes % 12.4 % (21.3-54.2); Mean Corpuscular HGB Conc 30.6 GM/DL (32-36); Mean Corpuscular Volume 88.2 FL (87-102); Mean Platelet Volume 11.8 FL (9.6-12.0); Monocytes % 13.7 % (1.7-12.7); Neutrophils % 72.5 % (38.7-73.9); Platelet Count 233 T/CUMM (130-400); Red Blood Count 4.15 MC/CUMM (3.8-5.5); Red Cell Distribution Width 15.3 % (9.3-17.3); White Blood Count 16.5 T/CUMM (4-12)
[2019-06-19 06:26] LABS: Calcium 8.5 MG/DL (8.5-10.1); Osmolality,Calculated 281.4 MOS/KG (273-304)
[2019-06-19] MEDS: POTASSIUM CHLORIDE 8 MEQ CAPSULE PO SCH ×3 (10:06→22:33)
[2019-06-19] MEDS: metOLazone 5 MG TABLET PO SCH ×4 (10:06→22:34)
[2019-06-19] MEDS: PREGABALIN 75 MG CAPSULE PO SCH ×4 (10:06→22:33)
[2019-06-19] MEDS: FOLIC ACID 1 MG TABLET PO SCH (10:06)
[2019-06-19] MEDS: predniSONE 10 MG TABLET PO SCH (10:07)
[2019-06-19] MEDS: METOPROLOL TARTRATE 25 MG TABLET PO SCH ×3 (10:07→22:33)
[2019-06-19] MEDS: CLOPIDOGREL 75 MG TABLET PO SCH (10:07)
[2019-06-19] MEDS: rOPINIRole 1 MG TABLET PO SCH ×3 (10:07→22:34)
[2019-06-19] MEDS: ENOXAPARIN 40 MG/0.4 ML SYRINGE SUBCUT SCH (10:08)
[2019-06-19] MEDS: FUROSEMIDE 40 MG TABLET PO SCH ×3 (10:08→21:13)
[2019-06-19] MEDS: predniSONE 1 MG TABLET PO SCH (10:08)
[2019-06-19] MEDS: PANTOPRAZOLE 40 MG TABLET PO SCH (10:08)
[2019-06-19] MEDS ORDERED: ALBUTEROL/IPRATROPIUM 3 ML NEB RESP TX PRN (17:22)
[2019-06-19] MEDS: MONTELUKAST 10 MG TABLET PO SCH ×2 (21:15→22:34)
[2019-06-20] MEDS: PIPERACILLIN/TAZOBACTAM 3,375 MG in SODIUM CHLORIDE 0.9% 100 ML IV SCH ×3 (03:41→18:31)
[2019-06-20 06:17] LABS: Basophils % 0.2 % (0.0-0.8); Eosinophils # 0.1 10*3/uL (0.0-0.87); Eosinophils % 0.7 % (0.00-10.9); Hematocrit 34.1 VOL% (35.7-47.0); Hemoglobin 10.4 GM/DL (12.0-16.0); Immature Granulocytes % 0.5 %; Immature Granulocytes Absolute 0.06 #; Lymphocytes # 1.4 10*3/uL (1.4-4.0); Lymphocytes % 11.4 % (21.3-54.2); Mean Corpuscular HGB Conc 30.5 GM/DL (32-36); Mean Corpuscular Volume 88.8 FL (87-102); Monocytes % 14.5 % (1.7-12.7); Neutrophils % 72.7 % (38.7-73.9); Platelet Count 187 T/CUMM (130-400); Red Blood Count 3.84 MC/CUMM (3.8-5.5); Red Cell Distribution Width 15.3 % (9.3-17.3); White Blood Count 12.4 T/CUMM (4-12)
[2019-06-20] MEDS: LEVOTHYROXINE 75 MCG TABLET PO SCH (06:38)
[2019-06-20 06:45] LABS: Calcium 8.4 MG/DL (8.5-10.1)
[2019-06-20] MEDS ORDERED: FUROSEMIDE 40 MG/4 ML VIAL IV ONE (07:18)
[2019-06-20] MEDS: PANTOPRAZOLE 40 MG TABLET PO SCH (09:22)
[2019-06-20] MEDS: rOPINIRole 1 MG TABLET PO SCH ×2 (09:22→21:37)
[2019-06-20] MEDS: FOLIC ACID 1 MG TABLET PO SCH (09:22)
[2019-06-20] MEDS: ENOXAPARIN 40 MG/0.4 ML SYRINGE SUBCUT SCH (09:23)
[2019-06-20] MEDS: CLOPIDOGREL 75 MG TABLET PO SCH (09:23)
[2019-06-20] MEDS: predniSONE 10 MG TABLET PO SCH (09:23)
[2019-06-20] MEDS: METOPROLOL TARTRATE 25 MG TABLET PO SCH ×2 (09:23→21:37)
[2019-06-20] MEDS: PREGABALIN 75 MG CAPSULE PO SCH ×3 (09:23→21:37)
[2019-06-20] MEDS: FUROSEMIDE 40 MG TABLET PO SCH ×2 (09:23→21:40)
[2019-06-20] MEDS: predniSONE 1 MG TABLET PO SCH (09:25)
[2019-06-20] MEDS: metOLazone 5 MG TABLET PO SCH ×2 (09:34→21:37)
[2019-06-20] MEDS: POTASSIUM CHLORIDE 8 MEQ CAPSULE PO SCH ×2 (09:34→21:37)
[2019-06-20] MEDS: metroNIDAZOLE INJ 500 MG in PREMIX 1 EACH IV SCH (09:36)
[2019-06-20] MEDS: MONTELUKAST 10 MG TABLET PO SCH (21:37)
[2019-06-21] MEDS: PIPERACILLIN/TAZOBACTAM 3,375 MG in SODIUM CHLORIDE 0.9% 100 ML IV SCH ×2 (03:17→11:06)
[2019-06-21 05:50] LABS: Basophils % 0.3 % (0.0-0.8); Eosinophils # 0.1 10*3/uL (0.0-0.87); Eosinophils % 0.9 % (0.00-10.9); Hematocrit 35.9 VOL% (35.7-47.0); Hemoglobin 10.8 GM/DL (12.0-16.0); Immature Granulocytes % 0.9 %; Lymphocytes # 2.1 10*3/uL (1.4-4.0); Lymphocytes % 17.6 % (21.3-54.2); Mean Corpuscular HGB Conc 30.1 GM/DL (32-36); Mean Corpuscular Volume 87.6 FL (87-102); Mean Platelet Volume 11.6 FL (9.6-12.0); Neutrophils % 68.3 % (38.7-73.9); Platelet Count 269 T/CUMM (130-400); Red Cell Distribution Width 15.2 % (9.3-17.3); White Blood Count 11.6 T/CUMM (4-12)
[2019-06-21] MEDS: LEVOTHYROXINE 75 MCG TABLET PO SCH (06:09)
[2019-06-21 06:29] LABS: Calcium 8.6 MG/DL (8.5-10.1); Osmolality,Calculated 284.3 MOS/KG (273-304)
[2019-06-21] MEDS: ENOXAPARIN 40 MG/0.4 ML SYRINGE SUBCUT SCH (08:28)
[2019-06-21] MEDS: POTASSIUM CHLORIDE 8 MEQ CAPSULE PO SCH ×2 (08:29→20:45)
[2019-06-21] MEDS: rOPINIRole 1 MG TABLET PO SCH ×2 (08:29→20:46)
[2019-06-21] MEDS: METOPROLOL TARTRATE 25 MG TABLET PO SCH ×2 (08:29→20:45)
[2019-06-21] MEDS: FOLIC ACID 1 MG TABLET PO SCH (08:29)
[2019-06-21] MEDS: metOLazone 5 MG TABLET PO SCH ×2 (08:30→20:50)
[2019-06-21] MEDS: PANTOPRAZOLE 40 MG TABLET PO SCH (08:30)
[2019-06-21] MEDS: PREGABALIN 75 MG CAPSULE PO SCH ×3 (08:30→20:45)
[2019-06-21] MEDS: CLOPIDOGREL 75 MG TABLET PO SCH (08:30)
[2019-06-21] MEDS: predniSONE 10 MG TABLET PO SCH (08:30)
[2019-06-21] MEDS: FUROSEMIDE 40 MG TABLET PO SCH ×2 (09:45→20:50)
[2019-06-21] MEDS: predniSONE 1 MG TABLET PO SCH (09:46)
[2019-06-21] MEDS: CIPROFLOXACIN INJ 400 MG in PREMIX 1 EACH IV SCH ×2 (12:45→23:41)
[2019-06-21] MEDS: metroNIDAZOLE INJ 500 MG in PREMIX 1 EACH IV SCH ×2 (14:20→20:44)
[2019-06-21] MEDS: MONTELUKAST 10 MG TABLET PO SCH (20:45)
[2019-06-22] MEDS: metroNIDAZOLE INJ 500 MG in PREMIX 1 EACH IV SCH (05:08)
[2019-06-22] MEDS: LEVOTHYROXINE 75 MCG TABLET PO SCH (06:13)
[2019-06-22] MEDS: predniSONE 1 MG TABLET PO SCH (09:02)
[2019-06-22] MEDS: FOLIC ACID 1 MG TABLET PO SCH (09:02)
[2019-06-22] MEDS: PREGABALIN 75 MG CAPSULE PO SCH (09:02)
[2019-06-22] MEDS: POTASSIUM CHLORIDE 8 MEQ CAPSULE PO SCH (09:02)
[2019-06-22] MEDS: rOPINIRole 1 MG TABLET PO SCH (09:02)
[2019-06-22] MEDS: predniSONE 10 MG TABLET PO SCH (09:02)
[2019-06-22] MEDS: CLOPIDOGREL 75 MG TABLET PO SCH (09:02)
[2019-06-22] MEDS: PANTOPRAZOLE 40 MG TABLET PO SCH (09:03)
[2019-06-22] MEDS: ENOXAPARIN 40 MG/0.4 ML SYRINGE SUBCUT SCH (09:03)
[2019-06-22] MEDS: METOPROLOL TARTRATE 25 MG TABLET PO SCH (09:03)
[2019-06-22] MEDS: FUROSEMIDE 40 MG TABLET PO SCH (09:18)
[2019-06-22] MEDS: metOLazone 5 MG TABLET PO SCH (09:21)
[2019-06-22 10:08] VITALS: BP 129/72
== END 2019-06-22 13:00 | disposition home or self-care (01) | DRG 392 ==
LOC: N.ED 12:42 → N.EDINP 14:18 → N.5E 15:32
PROVIDERS: ADMIT Internal Medicine; ATTEND Internal Medicine